=== PATIENT | female | born 1945 | race Caucasian/White ===

== ENCOUNTER 2016-09-27 13:35 | Inpatient (IN) | payer OTHER, BC ==
[~2016-09-27] VITALS: Ht 162.6 cm; Wt 63.3 kg
[~2016-09-27 13:35] MED LIST: ACETAMINOPHEN500 MG PO; ADVAIR HFA120 INHALA IH; ALLEGRA ALLERG180 MG PO; AMIODARONE HCL200 MG PO; AMIODARONE HCL400 MG PO; AMITRIPTYLINE H75 MG PO; AMLODIPINE BESYL5 MG PO; ASCORBIC ACID500 M3 PO; ASPIR-LOW81 MG PO; ASPIRIN81 M2 PO; BENTYL20 MG PO; CALCIUM CITRAT1 EA15 PO; CELEBREX200 MG PO; CELECOXIB200 MG PO; CIPRO500 MG PO; CITRUS CALCIUM1 EACH PO; CLONAZEPAM0.5 MG PO; CLONAZEPAM1 MG PO; COMPAZINE10 MG PO; CORTIZONE-1057 GM TP; CRANBERRY CONC500 MG PO; CRANBERRY TABL1 EACH PO; CYMBALTA60 MG PO; ELAVIL100 MG PO; ENALAPRIL MALEA20 MG PO; FISH OIL 1,0001 EA10 PO; FISH OIL 1,2001 EAC4 PO; FLAGYL500 MG PO; FLONASE16 G1 BOTH NARES; FOLIC ACID1 MG PO; FUROSEMIDE40 MG PO; GABAPENTIN800 MG PO; HYDROCODON-ACE1 EAC7 PO; KLONOPIN0.5 M1 PO; LACTULOSE10 GM/151 PO; LINZESS290 MCG PO; LIPITOR20 MG PO; LOPRESSOR25 MG PO; MULTIPLE VITAM1 EACH PO; MULTIVITAMIN1 EAC2 PO; NEURONTIN800 MG PO; NITROFURANTOIN100 MG PO; NORVASC5 MG PO; NYSTATIN-TRIAMC15 GM TP; ONCE DAILY1 EACH PO; ONDANSETRON4 MG/2 ML IV; OXYCONTIN10 MG PO; PREVACID30 MG PO; PROBIOTIC1 EAC1 PO; PROBIOTIC1 EAC2 PO; PROBIOTIC1 EAC3 PO; PROCHLORPERAZIN10 MG PO; PROCTOZONE-HC30 GM PR; SINGULAIR10 MG PO; SUMATRIPTAN SUC50 MG PO; TYLENOL PM1 CAPLET PO; VAGIFEM10 MCG VG; VASOTEC20 MG PO; VICODIN 5-3001 EACH PO; VITAMIN C1000 MG PO; VITRON-C TABLE1 EACH PO; ZOFRAN4 MG PO
[2016-09-27] MEDS ORDERED: CLONAZEPAM0.5 MG PO ×2 (15:10→15:11)
[2016-09-27] MEDS ORDERED: KLONOPIN0.5 M1 PO (15:12)
[2016-09-27] MEDS ORDERED: AMITRIPTYLINE H75 MG PO (15:17)
[2016-09-27 15:18] LABS: MCH 30.2 PG (29.0-34.0); MCHC 32.9 G/DL (30.0-36.0); MCV 91.8 FL (83-99); MEAN PLAT.VOLUME 8.2 uM^3 (9.5-12.4); PLATELET COUNT 364 K/uL (156-360); RBC DIS.WIDTH-CV 13.5 % (11.8-14.6); RBC DIS.WIDTH-SD 43.6 % (39-53); RED BLOOD COUNT 3.05 M/uL (3.80-5.20); WHITE BLOOD COUNT 14.9 K/uL (4.1-10.2)
[2016-09-27] MEDS ORDERED: DULOXETINE HCL60 MG PO (15:19)
[2016-09-27] MEDS ORDERED: VITRON-C TABLE1 EACH PO (15:25)
[2016-09-27] MEDS ORDERED: MORPHINE SULFAT15 M1 PO (15:26)
[2016-09-27] MEDS ORDERED: SUMATRIPTAN SUC50 MG PO (15:27)
[2016-09-27 15:44] LABS: CHLORIDE 103 mEq/L (99-109); POTASSIUM 4.5 mEq/L (3.7-5.4); SODIUM 135 mEq/L (136-147)
[2016-09-27 15:46] LABS: GLUCOSE 107 mg/dL (70-99)
[2016-09-27 15:47] LABS: ANION GAP 8 MEQ/L (2-14)
[2016-09-27 15:48] LABS: TOTAL BILIRUBIN 0.5 mg/dL (0.0-1.0)
[2016-09-27 15:49] LABS: ALKALINE PHOSPHATASE 171 IU/L (3-129)
[2016-09-27 15:50] LABS: GFR ESTIMATE (CALCULATED) > 59 mL/min/
[2016-09-27 15:51] LABS: UREA NITROGEN (BUN) 12 mg/dL (9-23)
[2016-09-27 15:53] LABS: LIPASE 9 U/L (1.0-51.0)
[2016-09-27 17:21] LABS: ADD MIUA? YES; BILIRUBIN NEGATIVE; BLOOD NEGATIVE; COLOR YELLOW ((YELLOW)); GLUCOSE (STRIP) NEGATIVE; KETONES NEGATIVE; LEUKOCYTES NEGATIVE; NITRITE NEGATIVE; PH, URINE 6.5 (5-8); PROTEIN (STRIP) NEGATIVE; SPECIFIC GRAVITY 1.016 (1.000-1.030); UROBILINOGEN 0.2 MG/DL (0.2-1.0)
[2016-09-27 17:41] LABS: BACTERIA 3+ /HPF; CASTS NONE SEEN /LPF; CRYSTALS NONE SEEN; EPITHELIAL CELLS RARE /HPF; MUCUS NONE SEEN /LPF; RED BLOOD CELLS 0-5 /HPF (0-5); UCUL ADDED? NO; WHITE BLOOD CELLS 0-5 /HPF (0-5)
[2016-09-27 18:11] LABS: C DIFF TOXIN POSITIVE (NEGATIVE)
[2016-09-27 18:16] LABS: PROBE CHECK PASS
[2016-09-27 18:55] LABS: POC NON-PRINT COM 1 ND
[2016-09-27 22:16] VITALS: BP 132/68
[2016-09-28 03:25] VITALS: BP 123/58
[2016-09-28 07:00] LABS: HEMATOCRIT 26.3 % (36.0-46.0); MCH 30.4 PG (29.0-34.0); MCHC 33.1 G/DL (30.0-36.0); MEAN PLAT.VOLUME 8.3 uM^3 (9.5-12.4); PLATELET COUNT 309 K/uL (156-360); RBC DIS.WIDTH-CV 13.9 % (11.8-14.6); RBC DIS.WIDTH-SD 46.8 % (39-53); RED BLOOD COUNT 2.86 M/uL (3.80-5.20); WHITE BLOOD COUNT 14.1 K/uL (4.1-10.2)
[2016-09-28 07:05] LABS: EOSINOPHIL (%) 0.6 % (0-5); EOSINOPHIL COUNT 0.1 K/uL (0-0.3); IMMATURE GRANULOCYTE (%) 0.5 % (0.0-0.7); IMMATURE GRANULOCYTE COUNT 0.1 K/uL; LYMPHOCYTE COUNT 1.4 K/uL (1.0-2.8); MONOCYTE (%) 7.6 % (3-12); MONOCYTE COUNT 1.1 K/uL (0-0.8); NEUTROPHIL (%) 81.5 % (45-76); NEUTROPHIL COUNT 11.5 K/uL (1.8-6.4)
[2016-09-28 07:27] LABS: ANION GAP 10 MEQ/L (2-14); CHLORIDE 102 MEQ/L (99-109); GFR ESTIMATE (CALCULATED) > 59 mL/min/; GLUCOSE 102 mg/dL (70-99); POTASSIUM 4.2 MEQ/L (3.7-5.4); SAMPLE HEMOLYSIS CHECK 0; SAMPLE ICTERIC CHECK 0; SAMPLE LIPEMIA CHECK 0; SODIUM 135 MEQ/L (136-147); UREA NITROGEN (BUN) 9 mg/dL (9-23)
[2016-09-28 08:14] VITALS: BP 123/60
[2016-09-28 10:46] LABS: ALKALINE PHOSPHATASE 143 IU/L (3-129); DIRECT BILIRUBIN 0.1 mg/dL (0.0-0.3); MAGNESIUM 1.8 mg/dl (1.3-2.7); TOTAL BILIRUBIN 0.5 MG/DL (0.0-1.0)
[2016-09-28 16:18] VITALS: BP 122/58
[2016-09-28 19:10] VITALS: BP 103/55
[2016-09-29 01:30] VITALS: BP 104/56
[2016-09-29 03:00] VITALS: BP 102/58
[2016-09-29 07:07] LABS: HEMATOCRIT 25.2 % (36.0-46.0); MCH 30.3 PG (29.0-34.0); MCHC 32.5 G/DL (30.0-36.0); MEAN PLAT.VOLUME 8.6 uM^3 (9.5-12.4); PLATELET COUNT 337 K/uL (156-360); RBC DIS.WIDTH-CV 13.9 % (11.8-14.6); RBC DIS.WIDTH-SD 47.5 % (39-53); RED BLOOD COUNT 2.71 M/uL (3.80-5.20); WHITE BLOOD COUNT 16.9 K/uL (4.1-10.2)
[2016-09-29 07:27] LABS: EOSINOPHIL (%) 0.9 % (0-5); EOSINOPHIL COUNT 0.2 K/uL (0-0.3); IMMATURE GRANULOCYTE (%) 0.5 % (0.0-0.7); IMMATURE GRANULOCYTE COUNT 0.1 K/uL; LYMPHOCYTE COUNT 1.3 K/uL (1.0-2.8); MONOCYTE (%) 9.6 % (3-12); MONOCYTE COUNT 1.6 K/uL (0-0.8); NEUTROPHIL (%) 81.1 % (45-76); NEUTROPHIL COUNT 13.7 K/uL (1.8-6.4)
[2016-09-29 07:35] LABS: ALKALINE PHOSPHATASE 127 IU/L (3-129); ANION GAP 8 MEQ/L (2-14); CHLORIDE 105 MEQ/L (99-109); GFR ESTIMATE (CALCULATED) > 59 mL/min/; GLUCOSE 111 mg/dL (70-99); POTASSIUM 3.9 MEQ/L (3.7-5.4); SAMPLE HEMOLYSIS CHECK 0; SAMPLE ICTERIC CHECK 0; SAMPLE LIPEMIA CHECK 0; SODIUM 137 MEQ/L (136-147); TOTAL BILIRUBIN 0.3 MG/DL (0.0-1.0); UREA NITROGEN (BUN) 8 mg/dL (9-23)
[2016-09-29 08:13] LABS: HEMATOLOGY COMMENT 1 SMEAR COMPATIBLE; USER ID CCL
[2016-09-29 08:35] VITALS: BP 94/52
[2016-09-29 16:30] VITALS: BP 100/60
[2016-09-29 23:09] VITALS: BP 98/62
[2016-09-30 07:38] LABS: EOSINOPHIL (%) 1.8 % (0-5); EOSINOPHIL COUNT 0.3 K/uL (0-0.3); HEMATOCRIT 26.5 % (36.0-46.0); IMMATURE GRANULOCYTE (%) 0.5 % (0.0-0.7); IMMATURE GRANULOCYTE COUNT 0.1 K/uL; LYMPHOCYTE COUNT 1.2 K/uL (1.0-2.8); MCH 30.2 PG (29.0-34.0); MCHC 32.5 G/DL (30.0-36.0); MEAN PLAT.VOLUME 8.6 uM^3 (9.5-12.4); MONOCYTE (%) 6.4 % (3-12); MONOCYTE COUNT 1.1 K/uL (0-0.8); NEUTROPHIL (%) 84.3 % (45-76); NEUTROPHIL COUNT 14.6 K/uL (1.8-6.4); PLATELET COUNT 397 K/uL (156-360); RBC DIS.WIDTH-CV 14.1 % (11.8-14.6); RBC DIS.WIDTH-SD 48.5 % (39-53); RED BLOOD COUNT 2.85 M/uL (3.80-5.20); WHITE BLOOD COUNT 17.4 K/uL (4.1-10.2)
[2016-09-30 07:55] VITALS: BP 95/54
[2016-09-30 08:02] LABS: ANION GAP 10 MEQ/L (2-14); CHLORIDE 106 MEQ/L (99-109); GFR ESTIMATE (CALCULATED) > 59 mL/min/; GLUCOSE 114 mg/dL (70-99); POTASSIUM 3.7 MEQ/L (3.7-5.4); SAMPLE HEMOLYSIS CHECK 0; SAMPLE ICTERIC CHECK 0; SAMPLE LIPEMIA CHECK 0; SODIUM 138 MEQ/L (136-147); UREA NITROGEN (BUN) 9 mg/dL (9-23)
[2016-09-30 16:00] VITALS: BP 102/54
[2016-09-30 19:11] VITALS: BP 111/63
[2016-10-01 01:05] VITALS: BP 102/55
[2016-10-01 08:09] VITALS: BP 105/69
[2016-10-01 15:32] VITALS: BP 100/79
[2016-10-01 23:55] VITALS: BP 108/60
[2016-10-02 08:07] VITALS: BP 101/80
[2016-10-02 09:16] LABS: EOSINOPHIL (%) 4.8 % (0-5); EOSINOPHIL COUNT 0.3 K/uL (0-0.3); IMMATURE GRANULOCYTE (%) 0.6 % (0.0-0.7); LYMPHOCYTE COUNT 1.4 K/uL (1.0-2.8); MCH 30.4 PG (29.0-34.0); MCHC 32.5 G/DL (30.0-36.0); MCV 93.4 FL (83-99); MEAN PLAT.VOLUME 8.3 uM^3 (9.5-12.4); MONOCYTE (%) 11.3 % (3-12); MONOCYTE COUNT 0.7 K/uL (0-0.8); NEUTROPHIL (%) 60.3 % (45-76); NEUTROPHIL COUNT 3.8 K/uL (1.8-6.4); PLATELET COUNT 483 K/uL (156-360); RBC DIS.WIDTH-CV 14.4 % (11.8-14.6); RBC DIS.WIDTH-SD 48.7 % (39-53); RED BLOOD COUNT 2.57 M/uL (3.80-5.20); WHITE BLOOD COUNT 6.3 K/uL (4.1-10.2)
[2016-10-02 09:41] LABS: ANION GAP 8 MEQ/L (2-14); CHLORIDE 110 MEQ/L (99-109); GFR ESTIMATE (CALCULATED) > 59 mL/min/; GLUCOSE 98 mg/dL (70-99); POTASSIUM 3.8 MEQ/L (3.7-5.4); SAMPLE HEMOLYSIS CHECK 0; SAMPLE ICTERIC CHECK 0; SAMPLE LIPEMIA CHECK 0; SODIUM 143 MEQ/L (136-147); UREA NITROGEN (BUN) 7 mg/dL (9-23)
[2016-10-02 15:29] VITALS: BP 110/72
[2016-10-02 23:52] VITALS: BP 131/65
[2016-10-03] MEDS ORDERED: VANCOMYCIN HCL250 MG PO (15:08)
== END 2016-10-03 16:41 | disposition home or self-care (01) | DRG 373 ==
LOC: EME 13:35 → EDOF 19:53 → 2EAST 19:53
PROVIDERS: Hospitalist; Internal Medicine; Physician Assistant
DX: A04.7 Enterocolitis due to Clostridium difficile (principal); I48.0 Paroxysmal atrial fibrillation; I10 Essential (primary) hypertension; K21.9 Gastro-esophageal reflux disease without esophagitis; D64.9 Anemia, unspecified; E78.5 Hyperlipidemia, unspecified; G89.29 Other chronic pain; I71.2 Thoracic aortic aneurysm, without rupture; Z95.2 Presence of prosthetic heart valve
CPT/HCPCS: 74177; 80048; 80053; 80069; 80076; 81003; 82272; 83605; 83690; 83735; 85025; 85027; 87077; 87086; 87186; 87493; 87506; 99281; 99285; J1644; J2405; J7030; S0030

== ENCOUNTER 2016-10-04 22:01 | Emergency (ER) | payer OTHER, BC ==
[~2016-10-04] VITALS: Ht 162.6 cm; Wt 61.3 kg
[~2016-10-04 22:01] MED LIST changes: +DULOXETINE HCL60 MG PO; +MORPHINE SULFAT15 M1 PO; +VANCOMYCIN HCL250 MG PO
[2016-10-04 23:23] LABS: HEMATOCRIT 25.3 % (36.0-46.0); MCH 29.3 PG (29.0-34.0); MCHC 30.4 G/DL (30.0-36.0); MCV 96.2 FL (83-99); MEAN PLAT.VOLUME 7.7 uM^3 (9.5-12.4); PLATELET COUNT 616 K/uL (156-360); RBC DIS.WIDTH-SD 45.8 % (39-53); RED BLOOD COUNT 2.63 M/uL (3.80-5.20); WHITE BLOOD COUNT 7.1 K/uL (4.1-10.2)
[2016-10-04 23:32] LABS: CHLORIDE 110 mEq/L (99-109); POTASSIUM 4.1 mEq/L (3.7-5.4); SODIUM 144 mEq/L (136-147)
[2016-10-04 23:34] LABS: GLUCOSE 119 mg/dL (70-99)
[2016-10-04 23:36] LABS: ANION GAP 6 MEQ/L (2-14)
[2016-10-04 23:38] LABS: GFR ESTIMATE (CALCULATED) > 59 mL/min/
[2016-10-04 23:39] LABS: UREA NITROGEN (BUN) 10 mg/dL (9-23)
[2016-10-05 01:16] VITALS: BP 152/78
== END 2016-10-05 01:16 | disposition home or self-care (01) ==
LOC: EME 22:01
PROVIDERS: Emergency Medicine
DX: D64.9 Anemia, unspecified (principal); R60.0 Localized edema; J90 Pleural effusion, not elsewhere classified; I10 Essential (primary) hypertension; Z95.4 Presence of other heart-valve replacement; Z87.891 Personal history of nicotine dependence; G89.29 Other chronic pain; Z79.891 Long term (current) use of opiate analgesic; Z79.82 Long term (current) use of aspirin
CPT/HCPCS: 71020; 80048; 83880; 85027; 99281; 99284

== ENCOUNTER 2016-10-13 19:42 | Observation (INO) | payer OTHER, BC ==
[~2016-10-13] VITALS: Ht 162.6 cm; Wt 61.8 kg
[2016-10-13 21:08] LABS: HEMATOCRIT 29.2 % (36.0-46.0); MCHC 31.5 G/DL (30.0-36.0); MCV 95.1 FL (83-99); RBC DIS.WIDTH-CV 14.9 % (11.8-14.6); RBC DIS.WIDTH-SD 48.3 % (39-53); RED BLOOD COUNT 3.07 M/uL (3.80-5.20); WHITE BLOOD COUNT 5.6 K/uL (4.1-10.2)
[2016-10-13 21:13] LABS: MEAN PLAT.VOLUME 9.2 uM^3 (9.5-12.4)
[2016-10-13 21:20] LABS: CHLORIDE 101 mEq/L (99-109); SODIUM 132 mEq/L (136-147)
[2016-10-13 21:21] LABS: PLATELET COUNT 283 K/uL (156-360)
[2016-10-13 21:22] LABS: GLUCOSE 95 mg/dL (70-99)
[2016-10-13 21:23] LABS: ANION GAP 8 MEQ/L (2-14)
[2016-10-13 21:24] LABS: TOTAL BILIRUBIN 0.2 mg/dL (0.0-1.0)
[2016-10-13 21:25] LABS: ALKALINE PHOSPHATASE 85 IU/L (3-129)
[2016-10-13 21:26] LABS: GFR ESTIMATE (CALCULATED) 32 mL/min/
[2016-10-13 21:27] LABS: UREA NITROGEN (BUN) 22 mg/dL (9-23)
[2016-10-13] MEDS ORDERED: VANCOCIN 250 M250 MG PO ×2 (23:20→23:21)
[2016-10-13] MEDS ORDERED: LO-DOSE ASPIRIN81 M2 PO (23:22)
[2016-10-13] MEDS ORDERED: FLUCONAZOLE150 MG PO (23:26)
[2016-10-13] MEDS ORDERED: PROAIR HFA8.5 GM IH (23:27)
[2016-10-13] MEDS ORDERED: LEVAQUIN750 MG PO (23:27)
[2016-10-13] MEDS ORDERED: CHOLESTYRAMINE378 GM PO (23:29)
[2016-10-13 23:54] LABS: ADD MIUA? YES; BILIRUBIN NEGATIVE; BLOOD NEGATIVE; COLOR YELLOW ((YELLOW)); GLUCOSE (STRIP) NEGATIVE; KETONES NEGATIVE; LEUKOCYTES NEGATIVE; NITRITE NEGATIVE; PROTEIN (STRIP) NEGATIVE; UROBILINOGEN 0.2 MG/DL (0.2-1.0)
[2016-10-14 00:02] LABS: BACTERIA RARE /HPF; EPITHELIAL CELLS 1+ /HPF; MUCUS NONE SEEN /LPF; RED BLOOD CELLS 0-5 /HPF (0-5); UCUL ADDED? NO; WHITE BLOOD CELLS 0-5 /HPF (0-5)
[2016-10-14 06:25] LABS: HEMATOCRIT 29.9 % (36.0-46.0); MCH 30.4 PG (29.0-34.0); MCHC 32.1 G/DL (30.0-36.0); MCV 94.6 FL (83-99); MEAN PLAT.VOLUME 8.7 uM^3 (9.5-12.4); PLATELET COUNT 262 K/uL (156-360); RBC DIS.WIDTH-CV 14.8 % (11.8-14.6); RBC DIS.WIDTH-SD 48.2 % (39-53); RED BLOOD COUNT 3.16 M/uL (3.80-5.20); WHITE BLOOD COUNT 4.4 K/uL (4.1-10.2)
[2016-10-14 07:10] LABS: ANION GAP 6 MEQ/L (2-14); CHLORIDE 102 MEQ/L (99-109); GFR ESTIMATE (CALCULATED) > 59 mL/min/; GLUCOSE 115 mg/dL (70-99); POTASSIUM 4.3 MEQ/L (3.7-5.4); SAMPLE HEMOLYSIS CHECK 0; SAMPLE ICTERIC CHECK 0; SAMPLE LIPEMIA CHECK 0; SODIUM 132 MEQ/L (136-147); UREA NITROGEN (BUN) 15 mg/dL (9-23)
[2016-10-14] MEDS ORDERED: NORVASC5 MG PO (15:57)
[2016-10-14 16:40] VITALS: BP 101/64
== END 2016-10-14 16:41 | disposition home or self-care (01) ==
LOC: EME 19:42 → EDOF 10-14 00:56
PROVIDERS: Hospitalist
DX: E87.5 Hyperkalemia (principal); N17.9 Acute kidney failure, unspecified; A04.7 Enterocolitis due to Clostridium difficile; B96.89 Other specified bacterial agents as the cause of diseases classified elsewhere; D63.8 Anemia in other chronic diseases classified elsewhere; Z95.3 Presence of xenogenic heart valve; I71.2 Thoracic aortic aneurysm, without rupture; I48.0 Paroxysmal atrial fibrillation; G89.29 Other chronic pain; M54.9 Dorsalgia, unspecified; I10 Essential (primary) hypertension; E78.5 Hyperlipidemia, unspecified; Z85.3 Personal history of malignant neoplasm of breast; Z92.21 Personal history of antineoplastic chemotherapy; Z82.49 Family history of ischemic heart disease and other diseases of the circulatory system; Z88.2 Allergy status to sulfonamides
CPT/HCPCS: 71250; 80048; 80053; 81003; 84132; 85027; 87493; 93005; 99202; 99281; 99285; G0378; J1644; J7030

== ENCOUNTER 2016-10-21 17:22 | Inpatient (IN) | payer OTHER, BC ==
[~2016-10-21] VITALS: Ht 162.6 cm; Wt 62.3 kg
[~2016-10-21 17:22] MED LIST changes: +CHOLESTYRAMINE378 GM PO; +FLUCONAZOLE150 MG PO; +LEVAQUIN750 MG PO; +LO-DOSE ASPIRIN81 M2 PO; +PROAIR HFA8.5 GM IH; +VANCOCIN 250 M250 MG PO
[2016-10-21 18:22] LABS: EOSINOPHIL (%) 0.5 % (0-5); EOSINOPHIL COUNT 0.1 K/uL (0-0.3); HEMATOCRIT 26.9 % (36.0-46.0); IMMATURE GRANULOCYTE (%) 0.2 % (0.0-0.7); IMMATURE GRANULOCYTE COUNT 0.3 K/uL; LYMPHOCYTE COUNT 1.2 K/uL (1.0-2.8); MCH 30.1 PG (29.0-34.0); MCV 94.1 FL (83-99); MEAN PLAT.VOLUME 8.7 uM^3 (9.5-12.4); MONOCYTE (%) 7.8 % (3-12); NEUTROPHIL (%) 82.1 % (45-76); NEUTROPHIL COUNT 10.5 K/uL (1.8-6.4); PLATELET COUNT 260 K/uL (156-360); RBC DIS.WIDTH-CV 13.8 % (11.8-14.6); RBC DIS.WIDTH-SD 45.3 % (39-53); RED BLOOD COUNT 2.86 M/uL (3.80-5.20); WHITE BLOOD COUNT 12.8 K/uL (4.1-10.2)
[2016-10-21 18:34] LABS: CHLORIDE 100 mEq/L (99-109); POTASSIUM 4.5 mEq/L (3.7-5.4); SODIUM 135 mEq/L (136-147)
[2016-10-21 18:37] LABS: GLUCOSE 113 mg/dL (70-99)
[2016-10-21 18:38] LABS: ANION GAP 9 MEQ/L (2-14)
[2016-10-21 18:39] LABS: TOTAL BILIRUBIN 0.3 mg/dL (0.0-1.0)
[2016-10-21 18:40] LABS: ALKALINE PHOSPHATASE 110 IU/L (3-129); GFR ESTIMATE (CALCULATED) > 59 mL/min/
[2016-10-21 18:42] LABS: UREA NITROGEN (BUN) 13 mg/dL (9-23)
[2016-10-21 19:50] LABS: ADD MIUA? NO; BILIRUBIN NEGATIVE; BLOOD NEGATIVE; COLOR YELLOW ((YELLOW)); GLUCOSE (STRIP) NEGATIVE; KETONES NEGATIVE; LEUKOCYTES NEGATIVE; NITRITE NEGATIVE; PROTEIN (STRIP) NEGATIVE; SPECIFIC GRAVITY 1.014 (1.000-1.030); UCUL ADDED? NO; UROBILINOGEN 0.2 MG/DL (0.2-1.0)
[2016-10-21 20:17] LABS: INFLUENZA A VIRAL ANTIGEN POSITIVE; INFLUENZA B VIRAL ANTIGEN NEGATIVE
[2016-10-21] MEDS ORDERED: HYDROCODON-ACE1 EAC7 PO (21:44)
[2016-10-21] MEDS ORDERED: NITROFURANTOIN100 MG PO (21:45)
[2016-10-21 23:08] LABS: C DIFF TOXIN NEGATIVE (NEGATIVE)
[2016-10-21 23:09] LABS: PROBE CHECK PASS; SPECIMEN PROCESSING CONTROL PASS
[2016-10-22 01:48] VITALS: BP 130/82
[2016-10-22 07:59] VITALS: BP 130/75
[2016-10-22 08:57] LABS: INTERNAL CONTROL VALID? YES
[2016-10-22 09:11] LABS: HEMATOCRIT 26.8 % (36.0-46.0); MCH 29.4 PG (29.0-34.0); MCHC 31.7 G/DL (30.0-36.0); MCV 92.7 FL (83-99); MEAN PLAT.VOLUME 8.9 uM^3 (9.5-12.4); PLATELET COUNT 252 K/uL (156-360); RBC DIS.WIDTH-CV 14.2 % (11.8-14.6); RED BLOOD COUNT 2.89 M/uL (3.80-5.20); WHITE BLOOD COUNT 9.9 K/uL (4.1-10.2)
[2016-10-22 09:34] LABS: ANION GAP 10 MEQ/L (2-14); CHLORIDE 101 MEQ/L (99-109); GFR ESTIMATE (CALCULATED) > 59 mL/min/; GLUCOSE 100 mg/dL (70-99); POTASSIUM 3.6 MEQ/L (3.7-5.4); SAMPLE HEMOLYSIS CHECK 0; SAMPLE ICTERIC CHECK 0; SAMPLE LIPEMIA CHECK 0; SODIUM 137 MEQ/L (136-147); UREA NITROGEN (BUN) 7 mg/dL (9-23)
[2016-10-22 11:26] VITALS: BP 130/70
[2016-10-22 16:14] VITALS: BP 120/68
[2016-10-22 19:40] VITALS: BP 137/77
[2016-10-23] VITALS (7 sets, daily range): BP systolic 132–176; BP diastolic 72–88
[2016-10-23 10:31] LABS: EOSINOPHIL (%) 1.7 % (0-5); EOSINOPHIL COUNT 0.1 K/uL (0-0.3); HEMATOCRIT 25.5 % (36.0-46.0); IMMATURE GRANULOCYTE (%) 0.3 % (0.0-0.7); LYMPHOCYTE COUNT 1.2 K/uL (1.0-2.8); MCH 29.8 PG (29.0-34.0); MCHC 31.8 G/DL (30.0-36.0); MCV 93.8 FL (83-99); MEAN PLAT.VOLUME 9.2 uM^3 (9.5-12.4); MONOCYTE (%) 10.3 % (3-12); MONOCYTE COUNT 0.7 K/uL (0-0.8); NEUTROPHIL (%) 69.8 % (45-76); NEUTROPHIL COUNT 4.9 K/uL (1.8-6.4); PLATELET COUNT 257 K/uL (156-360); RBC DIS.WIDTH-CV 14.2 % (11.8-14.6); RBC DIS.WIDTH-SD 48.5 % (39-53); RED BLOOD COUNT 2.72 M/uL (3.80-5.20)
[2016-10-23 10:53] LABS: ANION GAP 7 MEQ/L (2-14); CHLORIDE 103 MEQ/L (99-109); GFR ESTIMATE (CALCULATED) > 59 mL/min/; GLUCOSE 129 mg/dL (70-99); POTASSIUM 4.1 MEQ/L (3.7-5.4); SAMPLE HEMOLYSIS CHECK 0; SAMPLE ICTERIC CHECK 0; SAMPLE LIPEMIA CHECK 0; SODIUM 139 MEQ/L (136-147); UREA NITROGEN (BUN) 7 mg/dL (9-23)
[2016-10-24 08:27] VITALS: BP 136/73
[2016-10-24 09:06] LABS: HEMATOCRIT 27.4 % (36.0-46.0); MCH 30.5 PG (29.0-34.0); MCHC 32.5 G/DL (30.0-36.0); MCV 93.8 FL (83-99); MEAN PLAT.VOLUME 9.1 uM^3 (9.5-12.4); PLATELET COUNT 288 K/uL (156-360); RBC DIS.WIDTH-SD 48.2 % (39-53); RED BLOOD COUNT 2.92 M/uL (3.80-5.20); WHITE BLOOD COUNT 8.1 K/uL (4.1-10.2)
[2016-10-24 16:12] VITALS: BP 124/69
[2016-10-25] VITALS: BP 136/70
[2016-10-25 08:00] VITALS: BP 110/70
[2016-10-25 09:28] LABS: MCH 29.9 PG (29.0-34.0); MCHC 31.9 G/DL (30.0-36.0); MCV 93.5 FL (83-99); MEAN PLAT.VOLUME 9.1 uM^3 (9.5-12.4); PLATELET COUNT 302 K/uL (156-360); RBC DIS.WIDTH-CV 13.9 % (11.8-14.6); RBC DIS.WIDTH-SD 47.8 % (39-53); RED BLOOD COUNT 2.78 M/uL (3.80-5.20); WHITE BLOOD COUNT 5.8 K/uL (4.1-10.2)
[2016-10-25] MEDS ORDERED: CEFPODOXIME PR200 MG PO (12:13)
[2016-10-25] MEDS ORDERED: METRONIDAZOLE500 MG PO (12:13)
[2016-10-25] MEDS ORDERED: OSELTAMIVIR PHO30 MG PO (12:13)
== END 2016-10-25 14:47 | disposition home or self-care (01) | DRG 371 ==
LOC: EME 17:22 → 5EAST 23:50 → EDOF 23:50 → 5EAST 10-22 01:49
PROVIDERS: Emergency Medicine; Hospitalist
DX: A04.7 Enterocolitis due to Clostridium difficile (principal); J15.20 Pneumonia due to staphylococcus, unspecified; J11.1 Influenza due to unidentified influenza virus with other respiratory manifestations; Z95.2 Presence of prosthetic heart valve; Z90.13 Acquired absence of bilateral breasts and nipples; Z85.3 Personal history of malignant neoplasm of breast; Z86.19 Personal history of other infectious and parasitic diseases
CPT/HCPCS: 71020; 71275; 74177; 80048; 80053; 81003; 83605; 85025; 85027; 87040; 87045; 87046; 87449; 87493; 87502; 87506; 94799; 99202; 99281; 99285; J0456; J0692; J0696; J1626; J1650; J2405; J2543; J3370; J7030; J7050; J7120; S0030

== ENCOUNTER 2016-12-19 12:41 | Day surgery (SDC) | payer OTHER, BC ==
[~2016-12-19] VITALS: Ht 160 cm; Wt 59.0 kg
[~2016-12-19 12:41] MED LIST changes: +CEFPODOXIME PR200 MG PO; +METRONIDAZOLE500 MG PO; +OSELTAMIVIR PHO30 MG PO
[2016-12-19] MEDS ORDERED: NORVASC5 MG PO (13:06)
== END 2016-12-19 14:18 | disposition home or self-care (01) ==
LOC: PAIN 12:41 → SDC 13:30 → PAIN 14:18
DX: M48.06 Spinal stenosis, lumbar region (principal); M47.816 Spondylosis without myelopathy or radiculopathy, lumbar region; M62.838 Other muscle spasm; I10 Essential (primary) hypertension; M41.9 Scoliosis, unspecified; I48.91 Unspecified atrial fibrillation; I25.10 Atherosclerotic heart disease of native coronary artery without angina pectoris; K21.9 Gastro-esophageal reflux disease without esophagitis; Z88.2 Allergy status to sulfonamides; Z87.891 Personal history of nicotine dependence; Z79.82 Long term (current) use of aspirin; Z79.891 Long term (current) use of opiate analgesic; Z79.899 Other long term (current) drug therapy
CPT/HCPCS: J1030; J2250; J3010; S0020

== ENCOUNTER 2017-01-06 09:36 | Day surgery (SDC) | payer OTHER, BC ==
[~2017-01-06] VITALS: Ht 161.3 cm; Wt 59.0 kg
== END 2017-01-06 11:05 | disposition home or self-care (01) ==
LOC: PAIN 09:36 → SDC 10:15 → PAIN 11:05
PROC: 015B3ZZ Destruction of Lumbar Nerve, Percutaneous Approach (ICD-10-PCS; principal; 2017-01-06)
DX: M47.816 Spondylosis without myelopathy or radiculopathy, lumbar region (principal); F41.9 Anxiety disorder, unspecified; M48.06 Spinal stenosis, lumbar region; M62.838 Other muscle spasm; I25.10 Atherosclerotic heart disease of native coronary artery without angina pectoris; M41.9 Scoliosis, unspecified; Z87.891 Personal history of nicotine dependence; Z88.2 Allergy status to sulfonamides
CPT/HCPCS: J1030; J2250; J3010; S0020

== ENCOUNTER 2018-01-26 10:45 | Day surgery (SDC) | payer OTHER, BC ==
[~2018-01-26] VITALS: Ht 160 cm; Wt 62.1 kg
[~2018-01-26 10:45] MED LIST changes: +LIDOCAINE HCL35 GM TP
== END 2018-01-26 12:40 | disposition home or self-care (01) ==
LOC: PAIN 10:45 → SDC 11:30 → PAIN 11:30
DX: M47.816 Spondylosis without myelopathy or radiculopathy, lumbar region (principal); M48.061 Spinal stenosis, lumbar region without neurogenic claudication; M41.9 Scoliosis, unspecified; I10 Essential (primary) hypertension; Z79.82 Long term (current) use of aspirin; Z79.891 Long term (current) use of opiate analgesic; Z87.891 Personal history of nicotine dependence; Z88.2 Allergy status to sulfonamides; F41.9 Anxiety disorder, unspecified
CPT/HCPCS: J1030; J2250; S0020

== ENCOUNTER 2018-02-02 10:44 | Day surgery (SDC) | payer OTHER, BC ==
[~2018-02-02] VITALS: Ht 160 cm; Wt 61.2 kg
== END 2018-02-02 12:11 | disposition home or self-care (01) ==
LOC: PAIN 10:44 → SDC 11:30 → PAIN 11:30
PROC: BR161ZZ Fluoroscopy of Lumbar Facet Joint(s) using Low Osmolar Contrast (ICD-10-PCS; principal; 2018-02-02)
PROC: 3E0T3TZ Introduction of Destructive Agent into Peripheral Nerves and Plexi, Percutaneous Approach (ICD-10-PCS; principal; 2018-02-02)
DX: M47.816 Spondylosis without myelopathy or radiculopathy, lumbar region (principal); M48.061 Spinal stenosis, lumbar region without neurogenic claudication; M62.838 Other muscle spasm; I25.10 Atherosclerotic heart disease of native coronary artery without angina pectoris; Z86.19 Personal history of other infectious and parasitic diseases; Z87.891 Personal history of nicotine dependence; Z88.2 Allergy status to sulfonamides
CPT/HCPCS: J1030; J2250; S0020